=== PATIENT | female | born 1945 | race Two or more races ===

== ENCOUNTER 2018-04-06 16:08 | Observation (INO) | payer MEDICARE, BC ==
[2018-04-06] MEDS ORDERED: ASPIRIN 81 MG PO STA (16:24)
[2018-04-06] MEDS ORDERED: NITROGLYCERIN SL TABS 0.4 MG TAB SUBLINGUAL STA ×3 (16:24)
--- NOTE | 2018-04-06 16:26 | ED ---
General Adult HPI - General Chief complaint: Chest Pain Stated complaint: chest discomfort x 1 week Time Seen by Provider: 04/06/18 16:18 Source: patient, RN notes reviewed Mode of arrival: ambulatory Limitations: no limitations - History of Present Illness Initial comments: Patient is a pleasant 73-year-old female presenting to the emergency Department with complaints of chest discomfort. Onset of symptoms was around a week ago. Discomfort feels like burning. Discomfort is not exertional. No associated dyspnea or nausea or diaphoresis. Patient has tried Tums without improvement of symptoms. No history of similar symptoms previously. Discomfort is moderate. Discomfort has been somewhat waxing and waning. - Related Data Home Medications Medication Instructions Recorded Confirmed Loratadine [Claritin] 10 mg PO DAILY PRN 04/06/18 04/06/18 diphenhydrAMINE HCL [Benadryl] 25 mg PO DAILY PRN 04/06/18 04/06/18 Allergies Allergy/AdvReac Type Severity Reaction Status Date / Time No Known Allergies Allergy Verified 04/06/18 17:49 Review of Systems ROS Statement: Those systems with pertinent positive or pertinent negative responses have been documented in the HPI. ROS Other: All systems not noted in ROS Statement are negative. Constitutional: Denies: fever Eyes: Denies: eye pain ENT: Denies: ear pain Respiratory: Denies: cough Cardiovascular: Reports: chest pain Endocrine: Denies: fatigue Gastrointestinal: Denies: abdominal pain Genitourinary: Denies: dysuria Musculoskeletal: Denies: arthralgia Skin: Denies: rash Neurological: Denies: weakness Past Medical History Past Medical History: No Reported History History of Any Multi-Drug Resistant Organisms: None Reported Past Surgical History: No Surgical Hx Reported Past Psychological History: No Psychological Hx Reported Smoking Status: Never smoker Past Alcohol Use History: None Reported Past Drug Use History: None Reported General Exam Limitations: no limitations General appearance: alert, in no apparent distress Head exam: Present: atraumatic Eye exam: Present: normal appearance ENT exam: Present: normal oropharynx Neck exam: Present: normal inspection Respiratory exam: Present: normal lung sounds bilaterally. Absent: chest wall tenderness Cardiovascular Exam: Present: regular rate, normal rhythm Expanded Peripheral pulses: 2+: Radial (R), Radial (L), Dorsalis Pedis (R), Dorsalis Pedis (L) GI/Abdominal exam: Present: soft. Absent: tenderness Extremities exam: Present: normal inspection. Absent: pedal edema, calf tenderness Neurological exam: Present: alert Psychiatric exam: Present: normal affect, normal mood Skin exam: Present: normal color Course Vital Signs 04/06/18 04/06/18 04/06/18 16:13 17:06 17:14 Temperature 98.5 F Pulse Rate 99 99 119 H Respiratory 18 16 18 Rate Blood Pressure 148/87 149/85 137/79 O2 Sat by Pulse 95 98 96 Oximetry EKG Findings - EKG Comments: EKG Findings:: Normal sinus rhythm 92. ID 178. QRS 134. QT 394. QTC 47. Left axis. Right bundle branch block. No acute ST change. Medical Decision Making - Medical Decision Making Patient reevaluated and resting comfortably in bed. No improvement of symptoms with nitroglycerin. Patient updated on results and plan. Case was discussed in detail with Dr. ventura, who will admit for Dr. Yoo. - Lab Data Result diagrams: 04/06/18 16:35 04/06/18 16:35 Lab Results 04/06/18 04/06/18 04/06/18 Range/Units 16:35 16:35 16:35 WBC 6.2 (3.8-10.6) k/uL RBC 4.66 (3.80-5.40) m/uL Hgb 13.2 (11.4-16.0) gm/dL Hct 40.1 (34.0-46.0) % MCV 86.1 (80.0-100.0) fL MCH 28.4 (25.0-35.0) pg MCHC 33.0 (31.0-37.0) g/dL RDW 12.9 (11.5-15.5) % Plt Count 201 (150-450) k/uL Neutrophils % 73 % Lymphocytes % 19 % Monocytes % 5 % Eosinophils % 2 % Basophils % 0 % Neutrophils # 4.5 (1.3-7.7) k/uL Lymphocytes # 1.2 (1.0-4.8) k/uL Monocytes # 0.3 (0-1.0) k/uL Eosinophils # 0.1 (0-0.7) k/uL Basophils # 0.0 (0-0.2) k/uL PT (9.0-12.0) sec INR (<1.2) APTT (22.0-30.0) sec Sodium 137 (137-145) mmol/L Potassium 4.1 (3.5-5.1) mmol/L Chloride 101 (98-107) mmol/L Carbon Dioxide 27 (22-30) mmol/L Anion Gap 9 mmol/L BUN 15 (7-17) mg/dL Creatinine 0.62 (0.52-1.04) mg/dL Est GFR (CKD-EPI)AfAm >90 (>60 ml/min/1.73 sqM) Est GFR (CKD-EPI)NonAf >90 (>60 ml/min/1.73 sqM) Glucose 123 H (74-99) mg/dL Calcium 9.4 (8.4-10.2) mg/dL Magnesium 2.1 (1.6-2.3) mg/dL Total Bilirubin 0.5 (0.2-1.3) mg/dL AST 24 (14-36) U/L ALT 27 (9-52) U/L Alkaline Phosphatase 54 (38-126) U/L Total Creatine Kinase 62 (30-135) U/L CK-MB (CK-2) 0.9 (0.0-2.4) ng/mL CK-MB (CK-2) Rel Index 1.5 Troponin I <0.012 (0.000-0.034) ng/mL Total Protein 6.8 (6.3-8.2) g/dL Albumin 4.3 (3.5-5.0) g/dL 04/06/18 Range/Units 16:35 WBC (3.8-10.6) k/uL RBC (3.80-5.40) m/uL Hgb (11.4-16.0) gm/dL Hct (34.0-46.0) % MCV (80.0-100.0) fL MCH (25.0-35.0) pg MCHC (31.0-37.0) g/dL RDW (11.5-15.5) % Plt Count (150-450) k/uL Neutrophils % % Lymphocytes % % Monocytes % % Eosinophils % % Basophils % % Neutrophils # (1.3-7.7) k/uL Lymphocytes # (1.0-4.8) k/uL Monocytes # (0-1.0) k/uL Eosinophils # (0-0.7) k/uL Basophils # (0-0.2) k/uL PT 10.4 (9.0-12.0) sec INR 1.1 (<1.2) APTT 22.9 (22.0-30.0) sec Sodium (137-145) mmol/L Potassium (3.5-5.1) mmol/L Chloride (98-107) mmol/L Carbon Dioxide (22-30) mmol/L Anion Gap mmol/L BUN (7-17) mg/dL Creatinine (0.52-1.04) mg/dL Est GFR (CKD-EPI)AfAm (>60 ml/min/1.73 sqM) Est GFR (CKD-EPI)NonAf (>60 ml/min/1.73 sqM) Glucose (74-99) mg/dL Calcium (8.4-10.2) mg/dL Magnesium (1.6-2.3) mg/dL Total Bilirubin (0.2-1.3) mg/dL AST (14-36) U/L ALT (9-52) U/L Alkaline Phosphatase (38-126) U/L Total Creatine Kinase (30-135) U/L CK-MB (CK-2) (0.0-2.4) ng/mL CK-MB (CK-2) Rel Index Troponin I (0.000-0.034) ng/mL Total Protein (6.3-8.2) g/dL Albumin (3.5-5.0) g/dL - Radiology Data Radiology results: image reviewed (Chest x-ray shows chronic changes. No acute process.) Disposition Clinical Impression: Chest pain Disposition: ADMITTED IP TO THIS HOSP Is patient prescribed a controlled substance at d/c from ED?: No Referrals: Rajat Yoo MD [Primary Care Provider] - 1-2 days Decision Time: 18:24
[2018-04-06 16:58] LABS: Basophils % (A) 0 %; Eosinophils # (A) 0.1 k/uL (0-0.7); Eosinophils % (A) 2 %; HCT 40.1 % (34.0-46.0); HGB 13.2 gm/dL (11.4-16.0); Lymphocytes # (A) 1.2 k/uL (1.0-4.8); Lymphocytes % (A) 19 %; MCH 28.4 pg (25.0-35.0); MCV 86.1 fL (80.0-100.0); Mean Platelet Volume 6.4; Monocytes # (A) 0.3 k/uL (0-1.0); Monocytes % (A) 5 %; Neutrophils # (A) 4.5 k/uL (1.3-7.7); Neutrophils % (A) 73 %; Platelet Count 201 k/uL (150-450); RBC 4.66 m/uL (3.80-5.40); RDW 12.9 % (11.5-15.5); WBC 6.2 k/uL (3.8-10.6)
[2018-04-06 17:10] LABS: INR 1.1 (<1.2); Partial Thromboplastin Time 22.9 sec (22.0-30.0); Prothrombin Time 10.4 sec (9.0-12.0)
--- NOTE | 2018-04-06 17:12 | XR ---
EXAMINATION TYPE: XR chest 2V DATE OF EXAM: 04/06/2018 COMPARISON: None HISTORY: 73-year-old female with chest pains TECHNIQUE: Frontal and lateral views FINDINGS: Heart borderline enlarged. Aorta and pulmonary vasculature within normal limits. Mild hyperinflation and mild interstitial prominence which appears chronic. No consolidation or pleural effusion. IMPRESSION: Chronic-appearing changes, possible underlying COPD. Borderline heart size. Otherwise, no acute proce ss seen.
[2018-04-06 17:19] LABS: ALT 27 U/L (9-52); AST 24 U/L (14-36); Albumin 4.3 g/dL (3.5-5.0); Alkaline Phosphatase 54 U/L (38-126); Anion Gap 9 mmol/L; Blood Urea Nitrogen 15 mg/dL (7-17); Calcium 9.4 mg/dL (8.4-10.2); Carbon Dioxide 27 mmol/L (22-30); Chloride 101 mmol/L (98-107); Glucose 123 mg/dL (74-99); Magnesium 2.1 mg/dL (1.6-2.3); Potassium 4.1 mmol/L (3.5-5.1); Sodium 137 mmol/L (137-145); Total Bilirubin 0.5 mg/dL (0.2-1.3); Total Protein 6.8 g/dL (6.3-8.2)
[2018-04-06 17:25] LABS: Creatine Kinase 62 U/L (30-135)
[2018-04-06 17:39] LABS: Creatine Kinase MB 0.9 ng/mL (0.0-2.4); Troponin I <0.012 ng/mL (0.000-0.034)
[2018-04-06] MEDS ORDERED: NITROGLYCERIN SL TABS 0.4 MG TAB SUBLINGUAL PRN (18:24)
[2018-04-06] MEDS ORDERED: FAMOTIDINE 20 MG/2 ML VIAL IV STA (18:25)
[2018-04-06 19:59] VITALS: BMI 22.6
[2018-04-06] MEDS ORDERED: BACLOFEN 10 MG TAB PO PRN (20:23)
[2018-04-06 22:59] LABS: Creatine Kinase 50 U/L (30-135)
[2018-04-06 23:12] LABS: Creatine Kinase MB 0.7 ng/mL (0.0-2.4); Troponin I <0.012 ng/mL (0.000-0.034)
--- NOTE | 2018-04-06 23:25 | HP ---
HISTORY AND PHYSICAL DATE OF ADMISSION: 04/06/2018. PRESENTING COMPLAINT: Burning sensation across the chest. HISTORY OF PRESENTING COMPLAINT: A very pleasant 73-year-old patient of Dr. Yoo with unremarkable past medical history, for 1 year has been having sensation of burning across the chest, sometimes in the back, with spasm. There was no dizziness. No lightheadedness. No perspiration. Not related to activity. It waxes and wanes. The patient occasionally is getting GERD. The patient has been anxious recently, very little help from Tums. The patient presented to the hospital to get cardiac cause ruled out. EKG in the ER showed right bundle branch block. The patient is otherwise very active. No prior cardiac history. REVIEW OF SYSTEMS: CONSTITUTIONAL: None. HEENT: None. CARDIOVASCULAR: As above. GASTROINTESTINAL: As above. : None. MUSCULOSKELETAL: None. DERMATOLOGIC, HEMATOLOGIC, LYMPHATIC: None. PSYCHIATRY: None. NEUROLOGICAL: None. PAST MEDICAL HISTORY: None. SURGICAL HISTORY: Tonsillectomy. SOCIAL HISTORY: Does not smoke or drink alcohol. Lives by herself, rents apartment. FAMILY HISTORY: Reviewed, noncontributory to presentation. HOME MEDICATIONS: Benadryl 25 mg p.r.n., Claritin 10 mg p.r.n. ALLERGIES: None. PHYSICAL EXAMINATION: Temperature 98.5, pulse 99, respiratory rate 18, blood pressure 148/87, pulse ox 95% on room air. GENERAL APPEARANCE: Average build, lying in bed comfortable. EYES: Pupils equal. Conjunctivae normal. HEENT: External nose and ears normal. Oral cavity normal. NECK: JVD not raised. Mass not palpable. Respiratory effort normal. LUNGS: Clear. CARDIOVASCULAR: First and second sounds normal. No edema. ABDOMEN: Soft, nontender. Liver and spleen not palpable. LYMPHATIC: No lymph nodes palpable in the neck or axillae. PSYCHIATRY: Alert and oriented x3. Mood and affect normal. NEUROLOGIC: Pupils equal. Cranial nerves grossly intact. Power and sensation grossly intact. INVESTIGATIONS: White count 6.2, hemoglobin 19.2, potassium 4.1, BUN and creatinine normal. ASSESSMENT: 1. This is a patient who presented with burning sensation across the chest and spasms going on for a week, waxing and waning, not related to exertion. The patient's cardiac risk factors are minimal. The patient had some heartburn before, had some help with Tums. EKG is nonspecific, showing right bundle branch block. Need to rule out ischemia. 2. Gastroesophageal reflux disease. PLAN: Patient is on aspirin and nitrates. We will get a CT angio of the chest. Cardiology is being consulted. Hopefully should get a stress test tomorrow. The patient's troponins are negative. Care was discussed with the patient. MMODL / IJN: [id number] /
[2018-04-06 23:29] LABS: Cholesterol 176 mg/dL (<200); HDL Cholesterol 71 mg/dL (40-60); LDL Cholesterol,Calculated 90 mg/dL (0-99); Triglycerides 75 mg/dL (<150)
--- NOTE | 2018-04-07 00:22 | CT ---
EXAMINATION TYPE: CT angio thor/abd pel aorta DATE OF EXAM: 04/06/2018 COMPARISON: None HISTORY: disscetion CT DLP: 579.20 mGycm. Automated Exposure Control for Dose Reduction was Utilized. CONTRAST: CT scan of the thorax, abdomen and pelvis is performed with IV Contrast, patient injected with 100 mL of Isovue 370. FINDINGS: There is mild pleural thickening and reticular density at the right lung apex consistent with scarrin g. The noncontrast images show small pericardial effusion. There are bilateral breast implants. There is normal contrast opacification of the thoracic and abdominal aorta. The ascending aorta measu res 3.8 cm. There is no evidence of aortic dissection. There is patency of the celiac artery and supe rior mesenteric artery. There is bilateral patency of the renal arteries. There is bilateral patency of the common internal and external iliac arteries. There is a 1 cm cyst in the right lobe of the lizzy er. Spleen appears normal. There is no pancreatic mass. There is no adrenal mass. Kidneys show satisfactory contrast opacification. There is no hydronephrosi s. There is no retroperitoneal adenopathy. There is no ascites. I see no intestinal wall thickening. IMPRESSION: No evidence of aortic aneurysm or dissection. Small hepatic cyst. No evidence of pulmonar y embolism.
[2018-04-07] MEDS: NITROGLYCERIN OINT 1 INCH/GM PACKET TOPICAL SCH ×2 (02:28→07:24)
[2018-04-07] MEDS: FAMOTIDINE 20 MG TAB PO SCH ×3 (02:28→20:01)
[2018-04-07 05:28] LABS: Creatine Kinase 41 U/L (30-135)
[2018-04-07 05:41] LABS: Creatine Kinase MB 0.7 ng/mL (0.0-2.4); Troponin I <0.012 ng/mL (0.000-0.034)
[2018-04-07] MEDS ORDERED: REGADENOSON 0.4 MG/5 ML SYRINGE IV ONE (08:47)
[2018-04-07] MEDS ORDERED: AMINOPHYLLINE 500 MG/20 ML VIAL IV PRN (08:47)
[2018-04-07] MEDS ORDERED: ASPIRIN 81 MG PO SCH (09:00)
[2018-04-07] MEDS ORDERED: ASPIRIN 325 MG TAB PO SCH (09:00)
--- NOTE | 2018-04-07 10:56 | ECHOF ---
Referral Reason:cp MEASUREMENTS -------- HEIGHT: 177.8 cm WEIGHT: 71.7 kg BP: 119/82 RVIDd: 3.0 cm (< 3.3) IVSd: 1.1 cm (0.6 - 1.1) LVIDd: 4.8 cm (3.9 - 5.3) LVPWd: 1.1 cm (0.6 - 1.1) IVSs: 1.3 cm LVIDs: 3.3 cm LVPWs: 1.3 cm LAESV Index (A-L): 21.04 ml/m Ao Diam: 3.4 cm (2.0 - 3.7) AV Cusp: 2.0 cm (1.5 - 2.6) LA Diam: 1.9 cm (2.7 - 3.8) EPSS: 0.5 cm MV E Koffi: 0.67 m/s MV DecT: 340 ms MV A Koffi: 0.87 m/s MV E/A Ratio: 0.76 RAP: 5.00 mmHg RVSP: 16.07 mmHg MV EF SLOPE: 81.16 mm/s (70 - 150) MV EXCURSION: 1.43 cm (> 18.000) FINDINGS -------- Sinus rhythm. This was a technically adequate study. Pt. Has Breast inplants The left ventricular size is normal. There is borderline concentric left ventricular hypertrophy. Overall left ventricular systolic function is normal with, an EF between 55 - 60 %. The right ventricle is mildly enlarged. Normal LA size by volume 22+/-6 ml/m2. The right atrium is normal in size. There is mild aortic valve sclerosis. There is no evidence of aortic regurgitation. There is no e vidence of aortic stenosis. The mitral valve leaflets are mildly thickened. There is trace to mild mitral regurgitation. Trace tricuspid regurgitation present. Right ventricular systolic pressure is normal at < 35 mmHg. There is no evidence of pulmonary hypertension. The pulmonic valve was not well visualized. The aortic root size is normal. Normal inferior vena cava with normal inspiratory collapse consistent with estimated right atrial pre ssure of 5 mmHg. There is a small, generalized pericardial effusion present. CONCLUSIONS -------- 1. Sinus rhythm. 2. This was a technically adequate study. 3. Pt. Has Breast inplants 4. The left ventricular size is normal. 5. There is borderline concentric left ventricular hypertrophy. 6. Overall left ventricular systolic function is normal with, an EF between 55 - 60 %. 7. The right ventricle is mildly enlarged. 8. Normal LA size by volume 22+/-6 ml/m2. 9. There is mild aortic valve sclerosis. 10. The mitral valve leaflets are mildly thickened. 11. There is trace to mild mitral regurgitation. 12. Trace tricuspid regurgitation present. 13. Right ventricular systolic pressure is normal at < 35 mmHg. 14. There is no evidence of pulmonary hypertension. 15. The pulmonic valve was not well visualized. 16. The aortic root size is normal. 17. There is a small, generalized pericardial effusion present. X RAY DEVELOPER: Christopher Juarez RDCS
--- NOTE | 2018-04-07 11:37 | P.CRDCN ---
History of Present Illness History of present illness: Mrs. García is a pleasant 73-year-old female past medical history significant for seasonal allergies and headaches. She denies history of coronary artery disease, hypertension, dyslipidemia or diabetes mellitus. We have been asked to see her in consultation for chest pain. She states for the last 7-10 days she has felt a burning sensation in her chest with radiation through to the back. The discomfort was across the anterior chest from side to side with no radiation to the arm, neck or jaw. She denies associated shortness of breath, nausea, vomiting, diaphoresis, palpitations or dizziness. She states she has been following with Dr. Barrera over the past week as well for an odd feeling in her left breast. He did an ultrasound which came to be normal. She noticed her symptoms were associated when she would get thinking about the possibility of an abnormality on the ultrasound. She went and saw her PCP Saturday and had her blood pressure checked but was unable to be seen. She got the report from Dr. Barrera Saturday but continued to feel discomfort so she decided to come for evaluation. She had an episode of burning chest pain last night when she was talked to about the possibility of stress testing that subsided on its own. She is currently chest pain free. Echocardiogram ordered this morning reveals preserved left ventricular systolic function with ejection fraction 55-60%, mild aortic valve sclerosis, mildly thickened mitral valve and a small generalized pericardial effusion noted. EKG reveals right bundle branch block pattern with sinus mechanism. Chest x-ray negative for an acute cardiopulmonary process with evidence of mild hyperinflation and mild interstitial prominence. Thoracic aorta CT is negative for an aortic aneurysm or dissection and negative for PE. Laboratory data reviewed, hemoglobin 13.2, platelets 201, sodium 137, potassium 4.1, magnesium 2.1, creatinine 0.62, cardiac enzymes negative 3, LDL 90 and HDL 71. Review of Systems At the time of my exam: CONSTITUTIONAL: Denies fever. Denies chills. EYES: Denies blurred vision. Denies vision changes. Denies eye pain. EARS, NOSE, MOUTH & THROAT: Denies headache. Denies sore throat. Denies ear pain. CARDIOVASCULAR: Denies chest pain. Denies shortness of breath. Denies orthopnea. Denies PND. Denies palpitations. RESPIRATORY: Denies cough. GASTROINTESTINAL: Denies abdominal pain. Denies diarrhea. Denies constipation. Denies nausea. Denies vomiting. MUSCULOSKELETAL: Denies myalgias. INTEGUMENTARY: Denies pruitis. Denies rash. NEUROLOGIC: Denies numbness. Denies tingling. Denies weakness. PSYCHIATRIC: Denies anxiety. Denies depression. ENDOCRINE: Denies fatigue. Denies weight change. Denies polydipsia. Denies polyurina. GENITOURINARY: Denies burning, hematuria or urgency with micturation. HEMATOLOGIC: Denies history of anemia. Denies bleeding. Past Medical History Past Medical History: No Reported History Additional Past Medical History / Comment(s): seasonal allergies, headaches History of Any Multi-Drug Resistant Organisms: None Reported Past Surgical History: Tonsillectomy Past Anesthesia/Blood Transfusion Reactions: No Reported Reaction Past Psychological History: No Psychological Hx Reported Smoking Status: Never smoker Past Alcohol Use History: None Reported Past Drug Use History: None Reported Medications and Allergies Home Medications Medication Instructions Recorded Confirmed Type Loratadine [Claritin] 10 mg PO DAILY PRN 04/06/18 04/06/18 History diphenhydrAMINE HCL [Benadryl] 25 mg PO DAILY PRN 04/06/18 04/06/18 History Allergies Allergy/AdvReac Type Severity Reaction Status Date / Time No Known Allergies Allergy Verified 04/06/18 17:49 Physical Exam Vitals: Vital Signs Temp Pulse Pulse Resp BP BP Pulse Ox 04/07/18 08:00 98.4 F 86 14 119/82 98 04/07/18 03:34 98.2 F 79 16 124/70 98 04/07/18 03:33 82 16 04/07/18 00:00 80 16 04/06/18 23:59 98.1 F 73 16 119/70 98 04/06/18 20:17 84 16 04/06/18 19:47 98.3 F 79 16 169/95 99 04/06/18 18:50 91 16 158/89 98 04/06/18 17:14 119 H 18 137/79 96 04/06/18 17:06 99 16 149/85 98 04/06/18 16:13 98.5 F 99 18 148/87 95 Intake and Output 04/06/18 04/07/18 04/07/18 22:59 06:59 14:59 Other: # Voids 1 2 Weight 71.8 kg 71.8 kg Blood pressure 124/70 heart rate 79 afebrile maintaining oxygen saturation on room air GENERAL: This is a 73-year-old female in no apparent distress at the time of my examination. HEENT: Head is atraumatic, normocephalic. Pupils are equal, round. Sclerae anicteric. Conjunctivae are clear. Mucous membranes of the mouth are moist. Neck is supple. There is no jugular venous distention. No carotid bruit is heard. LUNGS: Clear to auscultation no wheezes, rales or rhonchi. No chest wall tenderness is noted on palpation or with deep breathing. HEART: Regular rate and rhythm without murmurs, rubs or gallops. S1 and S2 heard. ABDOMEN: Soft, nontender. Bowel sounds are heard. No organomegaly noted. EXTREMITIES: No evidence of peripheral edema and no calf tenderness noted. VASCULAR: Radial and dorsalis pedis pulses palpated, no evidence of clubbing. NEUROLOGIC: Patient is awake, alert and oriented x3. Results 04/06/18 16:35 04/06/18 16:35 Cardiac Enzymes 04/06/18 04/06/18 04/06/18 Range/Units 16:35 16:35 22:28 AST 24 (14-36) U/L CK-MB (CK-2) 0.9 0.7 (0.0-2.4) ng/mL Troponin I <0.012 <0.012 (0.000-0.034) ng/mL 04/07/18 Range/Units 04:48 AST (14-36) U/L CK-MB (CK-2) 0.7 (0.0-2.4) ng/mL Troponin I <0.012 (0.000-0.034) ng/mL Coagulation 04/06/18 Range/Units 16:35 PT 10.4 (9.0-12.0) sec APTT 22.9 (22.0-30.0) sec Lipids 04/06/18 Range/Units 16:35 Triglycerides 75 (<150) mg/dL Cholesterol 176 (<200) mg/dL HDL Cholesterol 71 H (40-60) mg/dL CBC 04/06/18 Range/Units 16:35 WBC 6.2 (3.8-10.6) k/uL RBC 4.66 (3.80-5.40) m/uL Hgb 13.2 (11.4-16.0) gm/dL Hct 40.1 (34.0-46.0) % Plt Count 201 (150-450) k/uL Comprehensive Metabolic Panel 04/06/18 Range/Units 16:35 Sodium 137 (137-145) mmol/L Potassium 4.1 (3.5-5.1) mmol/L Chloride 101 (98-107) mmol/L Carbon Dioxide 27 (22-30) mmol/L BUN 15 (7-17) mg/dL Creatinine 0.62 (0.52-1.04) mg/dL Glucose 123 H (74-99) mg/dL Calcium 9.4 (8.4-10.2) mg/dL AST 24 (14-36) U/L ALT 27 (9-52) U/L Alkaline Phosphatase 54 (38-126) U/L Total Protein 6.8 (6.3-8.2) g/dL Albumin 4.3 (3.5-5.0) g/dL Current Medications Generic Name Dose Route Start Last Admin Trade Name Freq PRN Reason Stop Dose Admin Aspirin 81 mg 04/07/18 09:00 Aspirin PO DAILY TIERA Baclofen 10 mg 04/06/18 20:23 04/06/18 21:50 Lioresal PO 10 mg QID PRN Administration Muscle Spasm Famotidine 20 mg 04/06/18 22:30 04/07/18 02:28 Pepcid PO Not Given BID TIERA Nitroglycerin 0.4 mg 04/06/18 18:24 Nitrostat SUBLINGUAL Q5M PRN Chest Pain Sodium Chloride 10 ml 04/06/18 21:00 04/07/18 02:28 Saline Flush IV Not Given BID TIERA Intake and Output 04/06/18 04/07/18 04/07/18 22:59 06:59 14:59 Other: # Voids 1 2 Weight 71.8 kg 71.8 kg 04/06/18 16:35 04/06/18 16:35 Assessment and Plan Assessment: ASSESSMENT Chest pain, atypical. Acute coronary event has been ruled out with no EKG evidence of ischemia and negative cardiac enzymes. PLAN Obtain 2-D echo cardiac, Doppler study to assess cardiac structure and function. Perform Lexiscan stress test to assess for reversible cardiac ischemia. If abnormal we will consider coronary angiography for further evaluation. If normal she is stable from a cardiac perspective. Further recommendations to follow based upon clinical course. Thank you kindly for this consultation. Nurse Practitioner note has been reviewed, I agree with a documented findings and plan of care. Patient was seen and examined.
--- NOTE | 2018-04-07 14:14 | EST ---
EXERCISE STRESS DATE OF SERVICE: April 07, 2018. INDICATION: Chest pain. AGE: 73 SEX: F HT: 5'10" WT: 158 PROTOCOL: Lexiscan STAGE: DURATION OF EXERCISE: HEART RATE REST: 80 BLOOD PRESSURE REST: 146/92 MAXIMUM HEART RATE ACHIEVED: 115 MAXIMUM BLOOD PRESSURE: 167/87 85% MPHR: 126 100% MPHR: 148 METS: STRESS DATA: Pretesting physical examination showed a heart rate at 80, pressure is 146/92 mmHg. Baseline EKG showed sinus mechanism with bifascicular block. 0.4 mg of Lexiscan was given over 15 seconds per protocol. The max heart rate was 115 beats per minute and maximum pressure was 150/89 mmHg. Clinically, the patient did not have any symptoms of chest pain or discomfort and the EKG did not show any significant ST or T-wave abnormalities concerning for ischemia. CONCLUSION: 1. Nondiagnostic electrocardiogram stress testing in response to Lexiscan. 2. Please follow up on the Cardiolite portion on separate report from radiology department. MMODL / IJN: [id number] /
--- NOTE | 2018-04-07 14:18 | NM ---
EXAMINATION TYPE: NM stress lexiscan cardiolite DATE OF EXAM: 04/07/2018 COMPARISON: NONE HISTORY: Chest pain TECHNIQUE: After the intravenous administration of 9.99 mCi Tc 99m Sestamibi - Cardiolite resting SP ECT images acquired 45 minutes post injection. The patient received 0.4mg Lexiscan, 25.7 mCi Tc 99m Sestamibi - Stress images obtained [address] injection FINDINGS: Review of stress and rest SPECT images demonstrates decreased reaffirms of uptake along anterior: Lef t ventricle on stress as compared to rest images. Gated analysis shows normal wall motion with an est imated left ventricular ejection fraction of 67 %. IMPRESSION: Pharmacologically induced left ventricular myocardial ischemia.
[2018-04-07] MEDS ORDERED: ALPRAZolam 0.25 MG TAB PO PRN (15:01)
[2018-04-07] MEDS ORDERED: ALPRAZolam 0.5 MG TAB PO PRN (15:01)
[2018-04-07] MEDS ORDERED: SODIUM CHLORIDE 0.9% 1,000 ML in EMPTY BAG 1 BAG IV ONE (15:01)
--- NOTE | 2018-04-07 15:05 | P.PN ---
Progress Note - Text Lexiscan stress test revealed arean of decreased uptake along the anterior LV on stress compared to rest indicated pharmacologically induced LV myocardial ischemia. We recommend she proceed with cardiac catheterization to further assess coronary arteries for blockage. I have discussed the risks, benefits and alternative therapies for the above-mentioned procedure and for both sedation/ analgesia as well as necessary blood product administration, if indicated, as they pertain to this patient. The patient has indicated understanding and acceptance of the risks and procedures discussed. Questions have been answered appropriately and she is agreeable to move forward with above stated procedure. Orders have been placed and boarded with the clinical laboratory director.
--- NOTE | 2018-04-07 17:14 | PN ---
PROGRESS NOTE DATE OF SERVICE: 04/07/2018. PRESENTING COMPLAINT: Burning sensation across the chest. INTERVAL HISTORY: This patient experienced a burning sensation across the chest and presented for the same. No further episodes. Lying in bed, tired-appearing. No nausea, vomiting. No dizziness. No lightheadedness. Did have a stress test this morning. REVIEW OF SYSTEMS: Done for constitutional, cardiovascular, GI, pulmonary; relevant findings as above. CURRENT MEDICATIONS: Reviewed. They include aspirin. PHYSICAL EXAMINATION: Temperature 98, pulse 85, respiration 16, blood pressure 119/70, pulse ox 97% on room air. GENERAL APPEARANCE: Sitting up, awake. EYES: Pupils equal. Conjunctivae normal. HEENT: External appearance of nose and ears normal. Oral cavity normal. NECK: JVD not raised. Mass not palpable. RESPIRATORY: Effort normal. Lungs are clear. CARDIOVASCULAR: First and second sounds normal. No edema. ABDOMEN: Soft, non-tender. Liver and spleen not palpable. PSYCHIATRY: Alert and oriented x3. Mood and affect normal. INVESTIGATIONS: Troponin x3 negative. Nuclear stress test results reviewed; positive for ischemia. Two- D echocardiogram showed EF of 55% to 60%. ASSESSMENT: 1. Anterior chest wall pain, presented with burning sensation. Now presents positive for stress test. 2. Right bundle branch block. 3. Gastroesophageal reflux disease. PLAN: Per Cardiology, patient will be going for a stress test tomorrow. Care was discussed earlier with the patient. AMENA / DARRIONN: [id number] /
[2018-04-08] MEDS ORDERED: MAG HYDROX/AL HYDROX/SIMETH 30 ML CUP PO PRN (00:21)
[2018-04-08] MEDS: FAMOTIDINE 20 MG TAB PO SCH ×2 (06:30→20:13)
[2018-04-08] MEDS: ASPIRIN 325 MG TAB PO SCH (06:30)
[2018-04-08] MEDS: ATORVASTATIN 80 MG TAB PO SCH (06:30)
--- NOTE | 2018-04-08 13:07 | P.PN ---
Subjective Mrs. García is seen and examined resting comfortably in bed. She states she had an episode of burning in the chest last night around midnight. She states she was laying flat in bed and felt an intense burning in the chest up into her neck. She felt this was a heart burn like symptom and asked to the nurse for maalox. She took the maalox and achieved minimal relief. Burning in her chest persisted. No nitro was given. Today she feels a non-specific discomfort in the left shoulder and into the upper left arm. Blood pressure 143/83 heart rate 86 afebrile maintaining oxygen saturation on room air. Cardiac catheterization changed to tomorrow morning. Objective - Vital Signs Vital signs: Vital Signs Temp 98.5 F 04/08/18 12:00 Pulse 86 04/08/18 12:00 Resp 16 04/08/18 12:00 BP 143/83 04/08/18 12:00 Pulse Ox 97 04/08/18 12:00 Intake & Output 04/07/18 04/08/18 04/08/18 18:59 06:59 18:59 Intake Total 600 518 Balance 600 518 Weight 71.668 kg Intake: Oral 600 518 Other: Voiding Method Toilet Toilet Toilet # Voids 1 - Exam GENERAL: Well-appearing, well-nourished and in no acute distress. NECK: Supple without JVD or thyromegaly. LUNGS: Breath sounds clear to auscultation bilaterally. Respiration equal and unlabored. No wheezes, rales or rhonchi. HEART: Regular rate and rhythm without murmurs, rubs or gallops. S1 and S2 heard. EXTREMITIES: Normal range of motion, no edema. No clubbing or cyanosis. Peripheral pulses intact. - Labs CBC & Chem 7: 04/06/18 16:35 04/06/18 16:35 Assessment and Plan Assessment: ASSESSMENT Chest pain, atypical. Acute coronary event has been ruled out with no EKG evidence of ischemia and negative cardiac enzymes. PLAN Cardiac catheterization scheduled for tomorrow. This has been explained to the patient in detail. She will be NPO after midnight tonight for procedure tomorrow. Further recommendations to follow based on clinical course. Nurse Practitioner note has been reviewed, I agree with a documented findings and plan of care. Patient was seen and examined.
[2018-04-08] MEDS ORDERED: ACETAMINOPHEN TAB 325 MG TAB PO PRN (20:05)
[2018-04-09] MEDS: FAMOTIDINE 20 MG TAB PO SCH (06:10)
[2018-04-09] MEDS: ASPIRIN 325 MG TAB PO SCH (06:10)
[2018-04-09] MEDS: ATORVASTATIN 80 MG TAB PO SCH (06:10)
[2018-04-09] MEDS ORDERED: IV FLUID CONTINUATION 900 ML IV ONE (06:37)
[2018-04-09] MEDS ORDERED: LIDOCAINE 2% SYG (PF) 100 MG/5 ML MISCELLANE ONE (06:59)
[2018-04-09] MEDS ORDERED: MIDAZOLAM 2 MG/2 ML VIAL IV ONE (07:00)
[2018-04-09] MEDS: VERAPAMIL SYRINGE (5 MG/10 ML) INTRAARTER ONE ×2 (07:00→07:11)
[2018-04-09] MEDS ORDERED: HEPARIN SODIUM 1,000 UN/ML (10ML VL) IV ONE (07:02)
--- NOTE | 2018-04-09 07:04 | PN ---
PROGRESS NOTE DATE OF SERVICE: 04/08/2018 PRESENTING COMPLAINT: Burning sensation across the chest. INTERVAL HISTORY: This patient presented with burning sensation across the chest. Had a stress test positive. Cardiology is planning to do a cardiac cath tomorrow. The patient wants to go home. She is very anxious. Patient has had no further burning sensation across the chest. No dizziness. No lightheadedness. No shortness of breath. The patient is very anxious. Has been up to the bathroom. REVIEW OF SYSTEMS: Review of systems done for constitutional, cardiovascular, GI, pulmonary; relevant findings as above. MEDICATIONS: Current medications are reviewed. PHYSICAL EXAMINATION: On examination, temperature 98.3, pulse 80, respiration 16, blood pressure 130/84, pulse ox 98% on room air. GENERAL APPEARANCE: Sitting up, a bit anxious appearing. EYES: Pupils equal. Conjunctivae normal. HENT: External appearance of nose and ears normal. Oral cavity normal. NECK: JVD not raised. Mass not palpable. RESPIRATORY: Effort normal. Lungs are clear. CARDIOVASCULAR: First and second sounds are normal. No edema. ABDOMEN: Soft, nontender. Liver and spleen not palpable. PSYCHIATRY: Alert and oriented x3. Mood and affect anxious appearing. INVESTIGATIONS: Troponins are negative. Nuclear stress test was positive. ASSESSMENT: 1. Anterior chest wall pain presented burning sensation, now with a positive stress test. 2. Right bundle branch block. 3. Gastroesophageal reflux disease. 4. Situational anxiety. PLAN: I had a very lengthy talk with the patient as she was keen to go home. She says she is very compulsive and got things to do and is finding it very difficult to be here. After a lengthy talk and reassuring her, patient finally agreed to stay understanding the consequences of going home and that could have very detrimental effect including if there was underlying serious coronary artery disease. She decided to stay back. Total of 40 minutes was spent today including over 25 minutes of discussion. MMODL / IJN: [id number] /
[2018-04-09] MEDS ORDERED: IOPAMIDOL-370 125ML BTL INJ ONE (07:12)
[2018-04-09] MEDS ORDERED: RX INFO: IV CONTRAST WAS GIVEN 1 EACH MISC MISCELLANE PRN (07:16)
[2018-04-09] MEDS ORDERED: SODIUM CHLORIDE 0.9% 1,000 ML IV SCH (07:30)
--- NOTE | 2018-04-09 07:48 | LTR ---
DATE OF SERVICE: 04/09/[address] Yoo: Ms. García presented to [facility] with chest discomfort and ruled out for acute coronary event. She underwent a myocardial perfusion imaging stress test and that revealed an anterior ischemia. Because of that, a heart catheterization was recommended. Lolita underwent a heart catheterization today and that revealed normal coronaries. Thank you for allowing us to participate in her care and please do not hesitate to call if you have any questions or concerns. Sincerely, MMODL / IJN: [id number] /
--- NOTE | 2018-04-09 07:48 | CC ---
CARDIAC CATHETERIZATION REPORT DATE OF SERVICE: 04/09/2018 PERFORMING PHYSICIAN: Ace Barba MD. PROCEDURE PERFORMED: 1. Selective right and left coronary angiogram. 2. Left heart catheterization. INDICATION: This is a pleasant 73-year-old female patient who presented to the hospital with chest discomfort and ruled out for acute coronary event. She underwent a myocardial perfusion imaging stress test in the hospital and that revealed an anterior ischemia. Because of that, a heart catheterization was recommended. APPROACH: Right radial artery. COMPLICATION: None. LEVEL OF SEDATION: Moderate, with a sedation length of 14 minutes. PROCEDURE DESCRIPTION: After obtaining an informed consent, the patient was brought to the cardiac chemical lab technician. The right radial artery was cannulated using micropuncture technique and a micropuncture wire passed easily then I placed a 6-Nepalese sheath in the right radial artery. After that I gave the patient 2 mg of verapamil IA and 6000 units of heparin IV. Subsequently I did selective right and left coronary angiogram using JR4 and JL3.5 catheters. Left heart catheterization was performed using pigtail catheter which was 5- Nepalese catheter. The procedure was completed without any complication. SELECTIVE CORONARY ANGIOGRAM: 1. The RCA is tortuous but angiographically normal. It bifurcates distally into PDA and PLV branches, both are angiographically normal. 2. The left main is angiographically normal. It bifurcates into the left circumflex and left anterior descending artery. 3. The left circumflex is a large caliber vessel. It is a nondominant vessel. The proximal circumflex appeared to be angiographically normal and gives rise into a large OM branch which seems to be angiographically normal. Left circumflex continues after that as a moderate caliber vessel in the AV groove. 4. The left anterior descending artery: The proximal LAD is angiographically normal beside a segment of myocardial bridging. The LAD in the proximal portion gives rise into a moderate-sized diagonal branch which has mild ostial disease. The mid LAD and distal LAD appeared to be angiographically normal. HEMODYNAMICS: The left ventricular end-diastolic pressure was 8 mmHg and no gradient was identified across the aortic valve. CONCLUSION: 1. Normal coronary angiogram. 2. 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 POSTPROCEDURE MANAGEMENT: 1. Medical treatment only. 2. Follow up with the patient. MMODL / IJN: [id number] /
[2018-04-09 08:02] VITALS: RESP 18
[2018-04-09 12:51] VITALS: BP 109/71; PULSE 76; TEMP 98.2
--- NOTE | 2018-04-10 06:53 | DS ---
DISCHARGE SUMMARY DATE OF ADMISSION: 04/06/18 DATE OF DISCHARGE: 04/09/18. FINAL DIAGNOSES: 1. Anterior chest wall pain could be musculoskeletal. 2. Right bundle branch block. 3. Situational anxiety. HOSPITAL COURSE: This patient presented with anterior chest wall pain. Troponins were negative. Had a positive stress test. Cardiac cath showed normal coronaries. 2D echo showed EF of 55- 60%. Thoracic aorta CT scan, no aneurysm or dissection. EXAMINATION: Temperature 98.2, pulse 76, respirations 18, blood pressure 109/79, pulse ox 96% on room air. RESPIRATORY: Effort normal. Lungs are clear. CARDIOVASCULAR: First and second sounds normal. No edema. PSYCH: Slight anxious, anxiety. CONSULTATION: Dr. Barba from Cardiology. DISCHARGE MEDICATIONS: Tylenol 650 mg q.6h p.r.n. FOLLOWUP: Follow with Dr. Barba on 04/12/18, Dr. Rajat Yoo in 1 week. MMODL / DARRIONN: [id number] /
== END 2018-04-09 16:05 | disposition home or self-care (01) ==
LOC: EC 16:08 → 3OBS 18:24
PROVIDERS: ADMIT Hospitalist; ATTEND Hospitalist
DX: R07.89 Other chest pain (principal); R94.39 Abnormal result of other cardiovascular function study; K21.9 Gastro-esophageal reflux disease without esophagitis; I31.3 Pericardial effusion (noninflammatory); I45.10 Unspecified right bundle-branch block; J30.2 Other seasonal allergic rhinitis; F41.9 Anxiety disorder, unspecified; R51 Headache; Q24.5 Malformation of coronary vessels; Z79.899 Other long term (current) drug therapy
CPT/HCPCS: 99285 ×2; 96374 ×2; 36415; 93005; 93017; 93306; 93458; 80061; 80053; 82550 ×2; 82553 ×2; 83735; 84484 ×2; 85025; 85610; 85730; 71046; 71275; 74174; 78452; G0378 ×4; C1894; A9500; J2250; J2001; J1644; J2785; Q9967 ×2